=== PATIENT | male | born 1975 | race American Indian/Alaskan Native ===

== ENCOUNTER 2018-08-09 13:33 | Emergency (ER) | payer OTHER ==
[2018-08-09 14:20] VITALS: BP 147/82; PULSE 96; RESP 16; TEMP 98.3; O2SAT 98
[2018-08-09] MEDS ORDERED: Tdap Vaccine 0.5 ml Vial (10-64 yrs) IM ONE ×2 (14:34→14:49)
[2018-08-09] MEDS ORDERED: Bacitracin 500 Units/gm Oint Foilpak UD ONE (15:03)
--- NOTE | 2018-08-09 15:04 | ED PDOC ---
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 Patient reports that about thirty minutes prior to arrival while cleaning, he cut his left middle finger on a piece of metal, and sent for evaluation. Prior to arriving, he states he cleaned the wound and controlled bleeding. Denies numbness, tingling, other injury, decreased ROM, decreased sensation, and anti-coagulant use. Right hand dominant Tetanus not up to date PMD: none provided Past Medical History Reviewed: Historical Data, Nursing Documentation, Vital Signs Vital Signs: Last Vital Signs Temp 98.3 F 08/09/18 14:17 Pulse 96 H 08/09/18 14:17 Resp 16 08/09/18 14:17 BP 147/82 08/09/18 14:17 Pulse Ox 98 08/09/18 14:17 - Medical History PMH: No Chronic Diseases - Surgical History Surgical History: No Surg Hx - Family History Family History: States: Unknown Family Hx - Social History Current smoker - smoking cessation education provided: No Alcohol: None Drugs: Denies - Allergies Allergies/Adverse Reactions: Allergies Allergy/AdvReac Type Severity Reaction Status Date / Time No Known Allergies Allergy Verified 08/09/18 14:17 Review of Systems ROS Statement: Except As Marked, All Systems Reviewed And Found Negative Skin: Positive for: Other (laceration to left middle finger) Neurological: Negative for: Numbness (or tingling of left hand or fingers) Physical Exam - Reviewed Nursing Documentation Reviewed: Yes Vital Signs Reviewed: Yes - Physical Exam Comments: GENERAL APPEARANCE: Patient is awake, alert, oriented x 3, in no acute distress. SKIN: Warm, dry; (-) cyanosis. CHEST AND RESPIRATORY: (-) chest wall tenderness. Lungs: (-) rales, (-) rhonchi, (-) wheezes; breath sounds equal bilaterally. HEART AND CARDIOVASCULAR: (-) irregularity; (-) murmur, (-) gallop. LEFT HAND: 2+ radial pulse, capillary refill less than 2 seconds. (+) 1cm very superficial linear laceration to distal palmar aspect of left third digit, (-) active bleeding. Sensation intact. (+) full ROM actively of all digits of left hand. NEURO AND PSYCH: Mental status as above. - ECG O2 Sat by Pulse Oximetry: 98 (RA) Pulse Ox Interpretation: Normal Medical Decision Making Medical Decision Making: Time: 1434 Initial Impression: wound care Initial Plan: --Patient's wound does not indicate suture repair. Wound covered with bacitracin and band-aid. Return parameters discussed and patient verbalized understanding. --Tetanus booster Discussed diagnosis, treatment, wound care, return precautions and f/u with pt who is understanding, in agreement and stable for dc Scribe Attestation: Documented by uZlly Benavides, acting as a scribe for Jalil Oconnor PA-C. Provider Scribe Attestation: All medical record entries made by the Scribe were at my direction and personally dictated by me. I have reviewed the chart and agree that the record accurately reflects my personal performance of the history, physical exam, medical decision making, and the department course for this patient. I have also personally directed, reviewed, and agree with the discharge instructions and disposition. Disposition - Clinical Impression Clinical Impression: Cut of finger - Patient ED Disposition Is Patient to be Admitted: No Counseled Patient/Family Regarding: Studies Performed, Diagnosis, Need For Followup - Disposition Referrals: workers, comp [Other] Disposition: Routine/Home Disposition Time: 15:10 Condition: STABLE Additional Instructions: Return to ED for new or worsening symptoms, fever >100.4, increase redness or swelling, foul odor or drainage from wound. Follow up with workers comp/employee health. Keep wound clean, dry and covered. Apply neosporin/bacitracin 1-2 times a day. Instructions: Wound Care (DC), Common Finger Injuries (DC) Forms: [facility] (Bengali), [facility] ED School/Work Excuse Print Language: SLOVENIAN - POA Present On Arrival: None
[2018-08-09] MEDS ORDERED: Bacitracin 500 Units/gm Oint Foilpak UD TOP STA (15:08)
== END 2018-08-09 15:19 | disposition home or self-care (01) ==
LOC: H.ER 13:33
DX: S61.213A Laceration without foreign body of left middle finger without damage to nail, initial encounter (principal); W26.8XXA Contact with other sharp object(s), not elsewhere classified, initial encounter; Y99.0 Civilian activity done for income or pay